=== PATIENT | female | born 1970 | race Caucasian/White ===

== ENCOUNTER → 2019-12-10 | Outpatient (CLI) | payer OTHER ==
[~2019-12-10] MED LIST: Evening Primro500 M1 PO; Hair, Skin & N1 EACH PO; TOCO1000
[2019-12-14 15:09] LABS: HPV 16 Negative (Negative); HPV 18 Negative (Negative); HPV OTHER HR TYPES Negative (Negative)
== END ==
LOC: LAB SHORT 12:19 → LAB 12:19
PROVIDERS: Obstetrics & Gynecology
DX: Z12.4 Encounter for screening for malignant neoplasm of cervix (principal)
CPT/HCPCS: 87624; G0123

== ENCOUNTER 2022-07-26 06:02 | Day surgery (SDC) | payer OTHER ==
[2022-07-26] VITALS (10 sets, daily range): BP systolic 94–138; BP diastolic 44–97
[~2022-07-26] VITALS: Ht 162.6 cm; Wt 82.9 kg
[~2022-07-26 06:02] MED LIST changes: +DUPIXENT P300 MG/2 M SC; +ESTRADIOL-NORE1 EAC1 PO; +MICROGESTIN 211 EACH PO; +Protopic100 GM TOP; +[UNRECOGNIZED DRUG - OTHER] PO; +[UNRECOGNIZED DRUG - OTHER] PO
[2022-07-26] MEDS ORDERED: ALLERCLEAR10 MG PO (06:29)
[2022-07-26] MEDS ORDERED: IBUP200 PO (06:29)
[2022-07-26] MEDS ORDERED: ZYRTEC10 M2 PO (06:30)
--- NOTE | 2022-07-26 08:27 | NUR ---
07/26/22 0827 Daniel Lopez I ABALTION TIME OF 1:21, MINIMAL FLUID DEFICIT.
--- NOTE | 2022-07-26 09:43 | NUR ---
DISCHARGE NOTE PT A&OX4, VSS, BREATHING RA, NO COMPLAINTS, TOLERATING PO FLUIDS. NO PAIN. SCAND AMOUNT OF SANGUINOUS DISCHARGE TO DIVINA PAD. PT DRESSED INDEPENDENTLY C RN AT BEDSIDE. Discharge instructions reviewed with patient. Patient verbalizes understanding. Copy given to patient to take home. Discharged via wheelchair to private car for ride home.
== END 2022-07-26 09:45 | disposition home or self-care (01) ==
LOC: ORSCMMR 06:02 → ORD 07:30 → ORSCMMR 07:30 → ORD 09:30 → ORSCMMR 09:45
PROVIDERS: Obstetrics & Gynecology
PROC: 0UJH8ZZ Inspection of Vagina and Cul-de-sac, Via Natural or Artificial Opening Endoscopic (ICD-10-PCS; principal; 2022-07-26 07:30)
DX: N92.0 Excessive and frequent menstruation with regular cycle (principal); Z79.899 Other long term (current) drug therapy
CPT/HCPCS: A9270; J2250; J2704; J3010; J7120

== ENCOUNTER → 2023-02-12 | Outpatient (CLI) | payer OTHER ==
[~2023-02-12] MED LIST changes: +ALLERCLEAR10 MG PO; +IBUP200 PO; +ZYRTEC10 M2 PO
== END | disposition home or self-care (01) ==
LOC: LAB 09:14 → LAB SHORT 09:14
DX: D48.5 Neoplasm of uncertain behavior of skin (principal)
CPT/HCPCS: 88305

== ENCOUNTER → 2023-08-20 | Outpatient (CLI) | payer OTHER ==
[2023-08-20 15:53] LABS: Alanine Aminotransfer (ALT/SGP 23 U/L (12-78); Albumin, Blood 4.2 g/dL (3.4-5.0); Albumin/Globulin Ratio 1.4 (0.8-1.8); Alk Phos 62 U/L (50-136); Anion Gap 7 mmol/L (3-11); Aspartate Aminotrans (AST/SGOT 17 U/L (12-37); Bilirubin, Total 0.5 mg/dL (0.1-1.0); Blood Urea Nitrogen 15 mg/dL (8-24); Bun/Creatinine Ratio 24.5 (12.0-20.0); CHOL/HDL RATIO 2.5; CO2, Blood 30 mmol/L (21-32); Calcium, Blood 9.2 mg/dL (8.5-10.1); Chloride, Blood 108 mmol/L (98-108); Cholesterol 288 mg/dL (50-200); Creatinine, Blood 0.61 mg/dL (0.40-1.00); Glomerular Filtration Rate 107 (60-); Glucose, Blood 96 mg/dL (70-99); HDL Cholesterol 115 mg/dL (>39); LDL/HDL RATIO 1.4; Low Density Lipoprotein Chol 158 mg/dL (0-110); Potassium, Blood 4.1 mmol/L (3.5-5.5); Sodium, Blood 141 mmol/L (136-145); Total Protein, Blood 7.2 g/dL (6.4-8.2); Triglycerides 73 mg/dL (30-160); Very Low Density Lipoprot Chol 14 mg/dL (6-32)
== END | disposition home or self-care (01) ==
LOC: LAB SHORT 14:19 → LAB 14:19
PROVIDERS: Hospitalist
DX: Z13.1 Encounter for screening for diabetes mellitus (principal); Z13.220 Encounter for screening for lipoid disorders; E66.09 Other obesity due to excess calories; Z78.0 Asymptomatic menopausal state
CPT/HCPCS: 80053; 80061; 83001; 84443